=== PATIENT | female | born 1935 | race Caucasian/White ===

== ENCOUNTER 2019-06-24 20:40 | Inpatient (IN) | payer MEDICARE ==
[~2019-06-24] VITALS: Ht 160 cm; Wt 57.4 kg
--- NOTE | ~2019-06-24 | WRIGHTHP ---
[place], [place] PATIENT HISTORY AND PHYSICAL EXAM [id number] UNIT #: [id number] ROOM: 310 DOCTOR: RYANN GALARZA MD BIRTHDATE: [birth year] DOS: 06/25/2019 PSYCHIATRIC HISTORY AND PHYSICAL REASON FOR HOSPITALIZATION: Paranoia and auditory and visual hallucination. HISTORY OF PRESENT ILLNESS: The patient was seen, chart reviewed. An 83-year-old female who was presented to [facility] because of hallucinations and delusion. She was feeling like people out there to get her and attack her. She was also experiencing auditory and visual hallucination. The patient got cleared medically except for urinary tract infection and then sent to the psychiatric unit for further care and stabilization. The patient was pleasant and cooperative during the time of the interview. She reports doing well. She said that it happens last time also whenever she gets UTI, she experiences psychotic symptoms and that is what it happened. She said that she is not experiencing any psychotic symptoms now. She denied depressed mood, hopelessness, helplessness, denied any other neurovegetative signs and symptoms of depression. She denied symptoms of michael or hypomania. She said that she is currently on Effexor and Risperdal and those two medications have been helping her. ALLERGIES: PENICILLIN and CODEINE. PAST MEDICAL HISTORY: Essential hypertension, migraine, osteoarthritis. PAST PSYCHIATRIC HISTORY: The patient denied prior psychiatric hospitalization, denied prior suicide attempt, no suicide in the family. Denied having any gun at home. SUBSTANCE ABUSE HISTORY: The patient has a history of alcohol abuse in the past. SOCIAL HISTORY: She was born and raised in [facility] and 11th grade education. She was twice, , now has 4 kids. She lives by herself. She denied any history of physical or sexual abuse. MENTAL STATUS EXAMINATION: The patient was pleasant and cooperative. She was alert and oriented to month, year and place. She described her mood as "okay." Affect was euthymic. Thought process goal directed. No flight of ideas, loosening of association. She denied auditory or visual hallucination. No delusion or paranoia noted. She denied suicidal ideation, intent or plan. She also denied any homicidal ideation, intent or plan. ASSESSMENT: Brief psychotic disorder. PLAN: 1. I will continue her Effexor XR 150 mg in the morning. [place], [place] PATIENT HISTORY AND PHYSICAL EXAM NAME: ANDREIA LASSITER UNIT #: [id number] ROOM: 310 DOCTOR: RYANN GALARZA MD BIRTHDATE: [birth year] 2. I will continue Risperdal 0.5 mg at night. 3. Need to get collateral information. 4. Continue 1:1 therapy, psychoeducation, and coping skill. 5. Encourage activity in groups. RYANN GALARZA MD CM:HISPHYS:PATIENT HISTORY AND PHYSICAL EXAMINATION [id number] RYANN GALARZA MD 06/25/19 1900 interface
--- NOTE | ~2019-06-24 | PR ---
[place], [place] PROGRESS NOTE NAME: [id number] UNIT #: [id number] ROOM: 310 DOCTOR: RYANN GALARZA MD BIRTHDATE: [birth year] DOS: 06/26/2019 PSYCHIATRIC PROGRESS NOTE SUBJECTIVE: The patient is seen and spoke with the nursing staff. Per staff, the patient slept almost 6 hours. She is compliant with her medication, isolated, refused breakfast in the morning. She was paranoid last night, thought someone is going to kill her at home. The patient was pleasant and cooperative. She was in her room. She reports doing well. She acknowledges that she was "a little paranoid" last night and was feeling nervous, but said that she is doing well now. She reports good sleep and appetite. When I asked her about not eating the breakfast, she said that "I'm not hungry." MENTAL STATUS EXAMINATION: Pleasant and cooperative. Described her mood as "I'm fine." Affect was euthymic. Thought process goal directed. No flight of ideas, loosening of association. She denied auditory or visual hallucination now, no overt delusion or paranoia noted. She denied suicidal ideation, intent or plan. She also denied homicidal ideation, intent or plan. PLAN: 1. Continue current medication. 2. Continue redirection. 3. Encourage activity and groups. RYANN GALARZA MD CM:PNTRANS 38 [phone] RYANN GALARZA MD 06/27/192346 interface
--- NOTE | ~2019-06-24 | PR ---
[place], [place] PROGRESS NOTE NAME: ANDREIA LASSITER UNIT #: [id number] ROOM: 310 DOCTOR: ROBERT WESTON MD BIRTHDATE: [birth year] DOS: 07/05/2019 INTERVAL NOTE CHIEF COMPLAINT: "Yeah, I had been hearing voices for a long time now. I need some help." SUMMARY OF THE VISIT: The patient was interviewed as she was resting in bed. She endorsed positive auditory hallucinations and stated that they have been going on for some time now and that they are rather bothersome. She also reported that she needed help getting out of bed, so she can get the breakfast. I do think her sense of needing assistance is greater than she totally verbalizes and it comes out in other ways as she continues to make complaints about hearing voices and a plethora of other somatic issues. Outwardly, she is tolerating the current medication regimen well and I see no sedation, somnolence, extrapyramidal symptoms or tardive dyskinesia. MENTAL STATUS: She is alert and oriented. Mood does seem to be still somewhat depressed and preoccupied. She is anxious and fretful and openly states that she does have issues with her anxiety. She positively endorses psychotic symptoms as well. PLAN: I will discontinue the Risperdal and utilize Invega instead starting at 3 mg in the morning to decrease some of her psychotic symptomatology. We will engage in individual and solis milieu activity, returning to the least restrictive environment when psychiatrically stable. ROBERT WESTON MD CM:PNTRANS [id number] ROBERT WESTON MD 07/05/19 1113 interface
--- NOTE | ~2019-06-24 | PR ---
[place], [place] PROGRESS NOTE NAME: ANDREIA LASSITER UNIT #: [id number] ROOM: 317 DOCTOR: ROBERT WESTON MD BIRTHDATE: [birth year] DOS: 07/10/2019 CHIEF COMPLAINT: "That little white pill at night is making me too tired, can you stop that please." SUMMARY OF THE VISIT: The patient was interviewed in the dining area where she was engaging in conversation with peers. She stopped and engaged in conversation with me. For the most part, she was fairly bright and pleasant. She did ask when she might be able to leave. She notes that the Invega at nighttime is making her sleepy and is willing to have me discontinue it and try something different. Overall, she does seem to be improving. MENTAL STATUS: She is alert and oriented with time gaps. Mood does seem to be more euthymic. Affect is more appropriate. There is no michael, hypomania or gross psychosis noted at this time. PLAN: I will discontinue the Invega in lieu of Risperdal 0.5 mg at bedtime, continue to engage in individual and solis milieu activity, returning to the least restrictive environment when psychiatrically stable. ROBERT WESTON MD CM:PNTRANS 0 35 ROBERT WESTON MD 07/10/192035 interface
--- NOTE | ~2019-06-24 | CON ---
[place], [place] REPORT OF CONSULTATION NAME: ANDREIA LASSITRE UNIT #: [id number] ROOM: 317 DOCTOR: PHD CALVIN JOE BIRTHDATE: [birth year] DOS: 07/06/2019 HISTORY OF PRESENT ILLNESS: The patient is an 83-year-old female referred by Dr. Castellano with concerns for dementia. At the present time, the patient is on the [facility]. The patient had been experiencing delusions that someone was out to get her and experiencing auditory hallucinations. She lives at home and is a . She has 4 children. She worked in the past in health. She reports a history of alcohol abuse and that she has been sober since 1990. She is also a former cigarette smoker. She denied illegal drug use. She had UTI upon admission. PAST MEDICAL HISTORY: Anxiety, depression, alcohol abuse, essential hypertension, migraines, osteoarthritis. MEDICATIONS: Invega, [place], Exelon, Voltaren, Geodon, Tenormin, Micro-K, Effexor XR, Maalox, milk of magnesia, Tylenol, Ativan, Rozerem. The patient was lying comfortably in bed, in no apparent distress. She was awake, alert and oriented to person, place and generally to time. Mood was euthymic and affect was appropriately right ranging. She denied suicidal and homicidal ideation, plan, and intent. Speech was somewhat halting. Expressive language was noteworthy for word finding problems and a few paraphasic errors. Receptive language appeared within normal limits conversationally. The patient did become confused at times following instructions. She denied hallucinations today stating that her most recent ones occurred yesterday. There was no evidence of delusions. The patient earned a 10/30 on the [place] Cognitive Assessment with an intact score being 26. Mini trials B and Necker cube copy were impaired. The patient's clock drawing was noteworthy for incorrect hand placement. Attention was impaired with the patient being able to perform a minimum of 5 digits forward, but not 3 digits backwards. She made a few errors of commission on a test of vigilance and could not perform any correct serial 7 subtractions. With respect to language abilities, the patient made many errors on a test of repetition and could only produce 7 words in 1 minute on a test of verbal fluency. She was also not able to name any of the 3 animals shown to her. She referred to a camel as a cannibal. Verbal abstraction was noteworthy for confusion and concreteness. On a test of memory, the patient was able to recall 4/5 words on both immediate recall trials. After a brief delay, she was able to recall 2/5 words. Category cues helped the patient recall an additional word and multiple choice helped the patient recall the last 2 words. Overall, the patient demonstrated significant cognitive deficits in the areas of executive functioning, attention, memory and language. Contributing factors may include her history of hypertension. DIAGNOSES: Unspecified neurocognitive disorder, brief psychotic disorder. RECOMMENDATIONS: Given the patient's cognitive deficits, she would need increased supervision and assistance managing her medications and activities of daily living. Thank you very much for this consult. [place], [place] REPORT OF CONSULTATION NAME: ANDREIA LASSITER UNIT #: [id number] ROOM: [facility] DOCTOR: CALVIN PHD JOE BIRTHDATE: [birth year] Jessa East PhD CM:CONSTR:REPORT OF CONSULTATION 1351 07/06/19 1944 interface
--- NOTE | ~2019-06-24 | PR ---
[place], [place] PROGRESS NOTE NAME: [id number] UNIT #: [id number] ROOM: 310 DOCTOR: RYANN GALARZA MD BIRTHDATE: [birth year] DOS: 06/27/2019 SUBJECTIVE: The patient was seen and spoke with the staff. Per staff, the patient slept 7 hours. No behavior problems or issues. No paranoia. She complains of shakiness. The patient was pleasant and cooperative. She was in her room. "She reports being anxious without any reason." She denied any paranoia. She is taking her medication. Denied any side effects. She reports good sleep and appetite. MENTAL STATUS EXAMINATION: The patient was pleasant, cooperative, described her mood as "okay." Affect was euthymic. She denied auditory or visual hallucination. No overt delusion or paranoia noted. She denied suicidal ideation, intent or plan. She also denied any homicidal ideation, intent or plan. PLAN: 1. I will start her on BuSpar 5 mg twice a day for anxiety. 2. Continue other medication. 3. Continue redirection and supportive care. 4. Encourage activity and groups. RYANN GALARZA MD CM:PNTRANS [id number] RYANN GALARZA MD 06/28/19 0000 interface
--- NOTE | ~2019-06-24 | PR ---
[place], [place] PROGRESS NOTE NAME: ANDREIA LASSITER UNIT #: [id number] ROOM: 317 DOCTOR: ROBERT WESTON MD BIRTHDATE: [birth year] DOS: 07/11/2019 INTERVAL NOTE CHIEF COMPLAINT: "Oh, I slept better, thank you so much. "I think I am doing well." SUMMARY OF THE VISIT: The patient was interviewed as she was sitting with a female peer eating breakfast. She stopped and engaged in conversation with me. She was bright, pleasant and engaging. She did not have any of the fragmented thinking, hallucinations, delusions that she had previously. Overall, she seems to be gradually improving. She voices a willingness and a readiness to return home soon. MENTAL STATUS: She is alert and oriented with some time gaps. Mood does seem to be strongly trending towards euthymia. Affect is much more appropriate. There is no michael or hypomania. There is no gross psychotic symptoms. Short term memory has some mild gaps, otherwise she is intact. PLAN: I will go ahead and maximize out the dose of Namenda, bringing it to 10 mg b.i.d. Continue the current dose of the Exelon patch and the Risperdal. Continue to engage in individual and solis milieu activity, returning to the least restrictive environment when psychiatrically stable. ROBERT WESTON MD CM:PNTRANS 26 ROBERT WESTON MD 07/11/192225 interface
--- NOTE | ~2019-06-24 | PR ---
[place], [place] PROGRESS NOTE NAME: ANDREIA LASSITER UNIT #: [id number] ROOM: 310 DOCTOR: ROBERT WESTON MD BIRTHDATE: [birth year] DOS: 07/06/2019 INTERVAL NOTE CHIEF COMPLAINT: "Oh, I slept well last night. I am feeling okay, thank you for asking." SUMMARY OF THE VISIT: The patient was interviewed as she was sitting in the dining area. She engaged readily in conversation, reporting no complaints. Nurses, however, note that in late afternoon early evening, she begins to get much more fretful and anxious and even to the point of being somewhat irritable. Her paranoia also increases during this period of time. MENTAL STATUS: She is alert and oriented to person, place and time. Mood does seem to be fairly euthymic this morning. I do not see the presence of hypomania, michael or psychosis at this time. Memory for the most part has only mild gaps, but is intact otherwise. PLAN: I will go ahead and add Rozerem 8 mg at bedtime to improve sleep. We will monitor for timing of her sundowning symptoms and have Dr. Jessa East, psychologist to evaluate for the presence of dementia. We will engage in individual and solis milieu activity, returning to the least restrictive environment when psychiatrically stable. ROBERT WESTON MD CM:PNTRANS [id number] ROBERT WESTON MD 07/06/19 1012 interface
--- NOTE | ~2019-06-24 | PR ---
[place], [place] PROGRESS NOTE NAME: ANDREIA LASSITER UNIT #: [id number] ROOM: 310 DOCTOR: LILIA LOWE DO BIRTHDATE: [birth year] DOS: 07/02/2019 PSYCHIATRIC PROGRESS NOTE CHIEF COMPLAINT: "Hi, good morning." SUMMARY VISIT: The patient is interviewed while lying in bed in her room. She states that she slept well last night. She was able to eat breakfast; however, she said it contained mostly Peoples. She admits that she had been shaking a lot but states that it is her nerves that makes her shake and help her relax and help with the shaking, she rests in bed. Per nursing staff, the patient slept about 6 hours last night. She has been calm and appropriate with staff members. MENTAL STATUS EXAMINATION: She is alert and oriented x 3. Mood is trending towards more euthymia. Affect is much more appropriate. There is no michael, hypomania or gross psychosis. Short-term memory has some gaps. PLAN: Continue current medication regimen. We will continue to support and engage in individual and solis milieu activity, returning to the least restrictive environment when psychiatrically stable. Lilia Lowe DO ROBERT WESTON MD CM:PNTRANS [id number] LILIA LOWE DO 07/02/19 1336 interface
--- NOTE | ~2019-06-24 | PR ---
[place], [place] PROGRESS NOTE NAME: ANDREIA LASSITER UNIT #: [id number] ROOM: 310 DOCTOR: WISAM RODRIGUEZ CNP BIRTHDATE: [birth year] DOS: 07/03/2019 CHIEF COMPLAINT: "I have bad nerves." SUMMARY OF THE VISIT: The patient was interviewed as she sat in the dining room, eating her breakfast. The patient engaged readily in conversation with me. The patient reports that she slept off and on last night and that she feels very anxious. She reported to staff that she randomly feels woozy. Yesterday she is reporting to staff that she heard voices coming from an electrical cord. Staff reports that the patient's appetite has been good. Her sleep was sporadic last night. She has been compliant with taking medications. MENTAL STATUS EXAMINATION: The patient is alert and oriented to person, place and time. She was pleasant and cooperative with me. No michael or hypomania noted. No delusions or paranoia noted. No auditory or visual hallucinations noted. The patient's mood was calm. Her affect was congruent with mood. PLAN: I am going to increase the patient's Risperdal to 0.5 mg in the morning to help combat the auditory hallucinations that the patient had been experiencing as well as to help with some of her anxiety, agitation symptoms. We will monitor the patient for effectiveness of medications. Monitor for side effects as well. Continue to encourage the patient to engage in individual and solis milieu activity. Continue fall and safety precautions. Plan is to return the patient to the least restrictive environment when she is considered psychiatrically stable. Wisam Rodriguez CNP CM:PNTRANS 4 1 WISAM RODRIGUEZ CNP 07/03/19921 interface
--- NOTE | ~2019-06-24 | DS ---
[place], [place] DISCHARGE SUMMARY [id number] UN[facility] #: [id number] ROOM: 317 DOCTOR: ROBERT WESTON MD BIRTHDATE: [birth year] DOS: 07/13/2019 DISCHARGE SUMMARY CHIEF COMPLAINT: "Oh, people are trying to get me. I just know they are trying to hurt me." HISTORY OF PRESENT ILLNESS: This is an 83-year-old white female who presented to [facility] because of increased hallucinations and delusions. The patient was grossly paranoid and believed that people are out there trying to get her and attack her. She is also experiencing significant auditory and visual hallucinations and responding to these hallucinations as if they are real. The patient has decompensated to the point where she is not meeting her basic needs and was ultimately then sent to the [facility] to further rule out organic factors and to stabilize on medication. Of note, the patient did have a UTI upon admission. SUMMARY OF HOSPITAL COURSE: The patient was admitted to the unit where her Effexor XR 150 mg a day and Risperdal 0.5 mg were continued. The patient was found to have significant cognitive issues at first and she was then started on Exelon patch 4.6 mg a day and Namenda 5 mg a day. The Risperdal was increased to 0.5 mg twice daily briefly in an effort to break the psychosis. Over the course of her time her time here on the unit, her Exelon patch dose was increased to its maximum dose of 13.3 mg a day and Namenda was also maxed out to 10 mg twice daily as she began to improve and become much more goal oriented in her thinking and the delusions, paranoia, and psychosis dissipated, it was felt that we could safely lower the Risperdal back to 0.5 mg at bedtime. After this was done, we observed her closely for reoccurrence of the symptoms and they did not reoccur. She voiced a willingness and a readiness to return home and was ultimately discharged home on 07/13/2019. MENTAL STATUS AT DISCHARGE: The patient is alert and oriented to person, place and fairly approximate to time. Mood does seem to be euthymic. Affect is appropriate. There is no michael, hypomania, or psychosis. Short-term memory has mild gaps, otherwise she is intact. FINAL DIAGNOSES: Brief psychotic disorder, Alzheimer's dementia. PLAN: All of her prescriptions have been e-scribed to [facility] in [place]. At the time of discharge, she was medically and psychiatrically stable. [place], [place] DISCHARGE SUMMARY NAME: ANDREIA LASSITER UNIT #: [id number] ROOM: 317 DOCTOR: ROBERT WESTON MD BIRTHDATE: [birth year] ROBERT WESTON MD CM:DISCHARG 6 0 ROBERT WESTON MD 07/13/19950 interface
--- NOTE | ~2019-06-24 | PR ---
[place], [place] PROGRESS NOTE NAME: ANDREIA LASSITER UNIT #: [id number] ROOM: 310 DOCTOR: ROBERT WESTON MD BIRTHDATE: [birth year] DOS: 06/28/2019 INTERVAL NOTE CHIEF COMPLAINT: "I need help getting to the bathroom." SUMMARY OF THE VISIT: The patient was interviewed as she was resting in bed. She was rather disjointed and fragmented in her thinking and looked rather perplexed and bewildered. She did ask me for help getting to the restroom and I told her I would bring in a nurse's aide, which I did. MENTAL STATUS EXAMINATION: She is alert and oriented to person, place, but not to time. Mood does seem to be rather anxious and perplexed. She is bewildered. There is no michael or hypomania. There is no voice psychosis; however, nurses report that she is experiencing paranoia. She does have gaps in her short term memory. PLAN: I will discontinue her BuSpar to simplify her regimen and instead increase her Risperdal from 0.5 mg at bedtime to 0.25 in the morning and 0.5 at night, adding Exelon patch 4.6 mg a day. We will monitor and support. ROBERT WESTON MD CM:PNTRANS 30 ROBERT WESTON MD 06/28/192231 interface
--- NOTE | ~2019-06-24 | PR ---
[place], [place] PROGRESS NOTE NAME: ANDREIA LASSITER UNIT #: [id number] ROOM: 310 DOCTOR: ROBERT WESTON MD BIRTHDATE: [birth year] DOS: 07/01/2019 CHIEF COMPLAINT: "Oh, I feel pretty good, thank you for asking." SUMMARY OF THE VISIT: The patient was interviewed as she was resting in bed. She reports she had already been up and was feeling well. She was less fixated on her sore back and in general responded to my questions appropriately. Nurses report that there is a similar improvement noted, but she still has periods of confusion and disorientation more so in the later afternoon and early evening. MENTAL STATUS: She is alert and oriented with some time gaps. Mood does seem to be strongly trending towards euthymia. Affect is much more appropriate. There is no michael, hypomania, or gross psychosis noted. Short-term memory has some gaps, and she does process at times slowly. PLAN: I will maintain her current psychotropic regimen, continue to engage in individual and solis milieu activity, return to the least restrictive environment when psychiatrically stable. ROBERT WESTON MD CM:PNTRANS [phone] ROBERT WESTON MD 07/01/19 0953 interface
--- NOTE | ~2019-06-24 | PR ---
[place], [place] PROGRESS NOTE NAME: ANDREIA LASSITER UNIT #: [id number] ROOM: 317 DOCTOR: ROBERT WESTON MD BIRTHDATE: [birth year] DOS: 07/08/2019 INTERVAL NOTE CHIEF COMPLAINT: "Oh, thank you for stopping. I am feeling well, thank you." SUMMARY OF THE VISIT: The patient was interviewed in her room where she was resting quietly in bed. She engaged readily in conversation as always and is very bright and pleasant in the morning. Nurses report, however, in the afternoon and evening, she becomes much more fretful, anxious, and even paranoid and her cognitive gaps become much more prominent. MENTAL STATUS: She is alert and oriented to person, place, very approximate to time, but not exact. She gives approximate answers and confabulates. There is no depression or anxiety. There is no hypomania, michael or psychosis. Short term memory has gaps. PLAN: I will go ahead and increase her Namenda from 5 mg a day to 5 mg twice a day as it augments the effectiveness of the Exelon. We will engage in individual and solis milieu activity, returning to the least restrictive environment when psychiatrically stable. ROBERT WESTON MD CM:PNTRANS 1018 ROBERT WESTON MD 07/08/19 1018 interface
--- NOTE | ~2019-06-24 | PR ---
[place], [place] PROGRESS NOTE NAME: ANDREIA LASSITER UNIT #: [id number] ROOM: 310 DOCTOR: LILIA LOWE DO BIRTHDATE: [birth year] DOS: 06/29/2019 CHIEF COMPLAINT: "Hi, how are you, been better, a little woozy right now." SUMMARY OF VISIT: The patient is interviewed while sitting in the dining baker eating breakfast. She states that she was put in the hospital due to UTI and that she got confused from that. She is polite and calm during the interview. Per nursing, the patient slept about 5 hours last night. They did report that yesterday her paranoia was improving. She still had some hallucinations, but tries to hide them from the staff. MENTAL STATUS EXAMINATION: She is alert and oriented to person and place, not necessarily to time. Mood does appear more euthymic. There was no michael or hypomania. There was no psychosis. There were no hallucinations noted during this interview. Some short-term memory gaps are present. PLAN: We will recheck the UA. We will continue to monitor and support and engage in individual and solis milieu activity, returning to least restrictive environment when psychiatrically stable. Lilia Lowe DO ROBERT WESTON MD CM:PNTRANS [id number] LILIA LOWE DO 06/29/19 1454 interface
--- NOTE | ~2019-06-24 | PR ---
[place], [place] PROGRESS NOTE NAME: ANDREIA LASSITER UNIT #: [id number] ROOM: 310 DOCTOR: LILIA LOWE DO BIRTHDATE: [birth year] DOS: 06/30/2019 CHIEF COMPLAINT: "Good morning, I am miserable with my back and legs." SUMMARY OF VISIT: The patient was interviewed while lying in bed in her room. She states that she had a hard time sleeping last night due to her back and legs hurting. The patient mentioned that she entered them a long time ago when she fell in her driveway when it was icy out and so she chronically has been dealing with this pain. She currently rates her pain as 8/10. She states she is still able to move and walk, but she does it with constant pain. Per nursing, the patient slept poorly overnight. They reported that she was having hallucinations and the patient is aware that she is having them and does not like how they make her feel and due to this, she is unsure when she can return home. MENTAL STATUS EXAMINATION: She is alert and oriented to person, place, not necessarily time. Mood is more euthymic. There is no michael or hypomania. No psychosis. There are no hallucinations during this interview; however, nursing staff reports auditory, visual and olfactory hallucinations during the day. There are some short-term memory gaps. PLAN: Start Zostrix-HP cream t.i.d. and increase Exelon patch to 9.5 mg daily. We will continue to monitor and support, engage in individual and solis milieu activity, returning to least restrictive environment when psychiatrically stable. Lilia Lowe, DO ROBERT WESTON MD CM:VIVI 1 [id number] LILIA LOWE DO 07/01/19 0055 interface
--- NOTE | ~2019-06-24 | PR ---
[place], [place] PROGRESS NOTE NAME: ANDREIA LASSITER UNIT #: [id number] ROOM: 317 DOCTOR: ROBERT WESTON MD BIRTHDATE: [birth year] DOS: 07/12/2019 CHIEF COMPLAINT: "Oh, I hope I get to go soon, I am feeling much better." SUMMARY OF THE VISIT: The patient was interviewed as she was sitting with a group of peers. She was engaging readily in conversation. She stopped and engaged in conversation with me, voicing no complaints. She reports she slept well, ate well and is feeling much better. MENTAL STATUS: She is alert and oriented with some mild time gaps. Overall, there is a significant trend towards euthymia and her behaviors have been much more consistent. There have been no acting out, no major issues. MENTAL STATUS: She is alert and oriented with time gaps. Mood does seem to be improving. Affect more appropriate. No hypomania, michael or psychosis. Short-term memory has mild gaps, otherwise she is intact. PLAN: I will maintain her current psychotropic regimen, engage in individual and solis milieu activity, returning to the least restrictive environment when psychiatrically stable. ROBERT WESTON MD CM:PNTRANS [id number] ROBERT WESTON MD 07/12/19 1025 interface
[2019-06-24 21:30] VITALS: BP 119/71
[2019-06-24] MEDS ORDERED: POTASSIUM CHLO10 MEQ PO (22:00)
[2019-06-24] MEDS ORDERED: EFFEXOR XR150 MG PO (22:01)
[2019-06-24] MEDS ORDERED: RISPERDAL0.5 MG PO (22:04)
[2019-06-24] MEDS ORDERED: TENORMIN50 MG PO (22:05)
[2019-06-24] MEDS ORDERED: CHLORTHALIDONE25 MG PO (22:06)
[2019-06-24 23:15] LABS: BILIRUBIN NEGATIVE (NEGATIVE); BLOOD NEGATIVE (NEGATIVE); CLARITY CLOUDY (CLEAR); COLOR YELLOW (YELLOW); GLUCOSE NEGATIVE (NEGATIVE); KETONE TRACE (NEGATIVE); LEUKO ESTERASE 3+ (NEGATIVE); NITRITE POSITIVE (NEGATIVE); SPECIFIC GRAVITY 1.015 (1.005-1.030)
[2019-06-24 23:22] LABS: BACTERIA 4+
[2019-06-24 23:23] LABS: WBC 51-100 wbc/hpf (0-5)
[2019-06-25 07:05] VITALS: BP 109/72
[2019-06-25 07:34] LABS: BASO % 0.1 % (0.0-1.0); EOS % 0.1 % (1.0-4.0); HEMATOCRIT 41.4 % (37.0-47.0); HEMOGLOBIN 13.2 g/dl (12.0-16.0); LYMPH # 2.2 10*3/uL (1.3-4.4); LYMPH % 28.2 % (27.0-41.0); MEAN CORPUSCULAR HGB 29.3 pg (27.0-31.0); MEAN CORPUSCULAR HGB CONC 31.9 g/dl (33.0-37.0); MEAN PLATELET VOLUME 10.9 fl (9.6-12.3); MONO # 0.6 10*3/uL (0.1-1.0); MONO % 7.9 % (3.0-9.0); NEUT # 4.9 10*3/uL (2.3-7.9); NEUT % 63.6 % (47.0-73.0); PLATELET COUNT AUTOMATED 385 10*3/uL (130-400); WHITE BLOOD COUNT 7.7 10*3/uL (4.8-10.8)
[2019-06-25 07:41] VITALS: BP 109/72
[2019-06-25 07:41] LABS: ALBUMIN 3.8 gm/dl (3.1-4.5); ALKALINE PHOSPHATASE 75 U/L (45-117); BUN 19 mg/dl (7-24); CHLORIDE 103 mmol/L (98-107); CHOLESTEROL 210 mg/dL (<200); CREATININE 0.96 mg/dL (0.55-1.02); HDL CHOLESTEROL 71 mg/dl (40-60); LDL CHOLESTEROL 118 mg/dL (9-159); POTASSIUM 3.7 mmol/L (3.5-5.1); SGOT/AST 19 IU/L (3-35); SGPT/ALT 17 U/L (12-78); SODIUM 138 mmol/L (136-145); TOTAL PROTEIN 7.4 gm/dL (6.4-8.2); TRIGLYCERIDES 103 mg/dl (<150); VLDL CHOLESTEROL 21 mg/dL (6-40)
[2019-06-25 17:00] LABS: VITAMIN D, 25-HYDROXY 39.2 ng/mL (30-100)
[2019-06-25 20:00] VITALS: BP 113/67
[2019-06-26 08:09] VITALS: BP 103/66
[2019-06-26 19:53] VITALS: BP 111/69
[2019-06-27 07:48] VITALS: BP 127/68
[2019-06-27 20:00] VITALS: BP 137/66
[2019-06-28 08:56] VITALS: BP 130/68
[2019-06-28 20:00] VITALS: BP 142/64
[2019-06-29 07:55] VITALS: BP 132/68
[2019-06-29 14:52] LABS: BILIRUBIN NEGATIVE (NEGATIVE); BLOOD NEGATIVE (NEGATIVE); CLARITY CLEAR (CLEAR); COLOR YELLOW (YELLOW); GLUCOSE NEGATIVE (NEGATIVE); KETONE NEGATIVE (NEGATIVE); LEUKO ESTERASE 3+ (NEGATIVE); NITRITE NEGATIVE (NEGATIVE); SPECIFIC GRAVITY 1.015 (1.005-1.030)
[2019-06-29 15:29] LABS: BACTERIA 3+; EPITHELIAL CELLS 21-30; WBC 31-40 wbc/hpf (0-5)
[2019-06-29 19:24] VITALS: BP 126/78
[2019-06-30 08:26] VITALS: BP 97/49
[2019-06-30 09:11] VITALS: BP 130/72
[2019-06-30 19:50] VITALS: BP 116/75
[2019-07-01 06:52] LABS: EOS % 0.2 % (1.0-4.0); HEMATOCRIT 40.1 % (37.0-47.0); HEMOGLOBIN 12.9 g/dl (12.0-16.0); LYMPH % 32.5 % (27.0-41.0); MEAN CELL VOLUME 90.7 fl (81.0-99.0); MEAN CORPUSCULAR HGB 29.2 pg (27.0-31.0); MEAN CORPUSCULAR HGB CONC 32.2 g/dl (33.0-37.0); MEAN PLATELET VOLUME 10.2 fl (9.6-12.3); MONO # 0.7 10*3/uL (0.1-1.0); MONO % 10.7 % (3.0-9.0); NEUT # 3.4 10*3/uL (2.3-7.9); NEUT % 56.4 % (47.0-73.0); PLATELET COUNT AUTOMATED 349 10*3/uL (130-400); RED BLOOD COUNT 4.42 10*6/uL (4.10-5.10); RED CELL DISTRI WIDTH 14.4 % (0-14.5); WHITE BLOOD COUNT 6.1 10*3/uL (4.8-10.8)
[2019-07-01 07:20] LABS: BUN 17 mg/dl (7-24); CHLORIDE 104 mmol/L (98-107); CREATININE 0.92 mg/dL (0.55-1.02); POTASSIUM 3.3 mmol/L (3.5-5.1); SODIUM 139 mmol/L (136-145)
[2019-07-01 08:01] VITALS: BP 102/82
[2019-07-01 20:22] VITALS: BP 128/76
[2019-07-02 07:42] VITALS: BP 147/65
[2019-07-02 20:15] VITALS: BP 111/76
[2019-07-03 07:34] VITALS: BP 137/67
[2019-07-03 20:00] VITALS: BP 140/69
[2019-07-04 07:03] VITALS: BP 112/64
[2019-07-04 19:57] VITALS: BP 120/60
[2019-07-05 08:03] VITALS: BP 123/85
[2019-07-05 20:00] VITALS: BP 120/72
[2019-07-06 07:35] VITALS: BP 114/54
[2019-07-06 20:00] VITALS: BP 124/64
[2019-07-07 07:33] VITALS: BP 130/57
[2019-07-07 19:56] VITALS: BP 104/68
[2019-07-08 07:53] VITALS: BP 121/71
[2019-07-08 19:48] VITALS: BP 115/65
[2019-07-09 07:39] VITALS: BP 121/68
[2019-07-09 19:38] VITALS: BP 100/68
[2019-07-10 07:58] VITALS: BP 114/58
[2019-07-10 20:00] VITALS: BP 109/65
[2019-07-11 07:56] VITALS: BP 87/53
[2019-07-11 08:17] VITALS: BP 108/70
[2019-07-11 20:00] VITALS: BP 116/72
[2019-07-12 08:24] VITALS: BP 110/59
[2019-07-12 19:18] VITALS: BP 115/68
[2019-07-13 07:44] VITALS: BP 128/54
[2019-07-13] MEDS ORDERED: ROZEREM8 MG PO (09:22)
[2019-07-13] MEDS ORDERED: EXELON13.3 MG/21 T (09:22)
[2019-07-13] MEDS ORDERED: RISPERIDONE0.5 MG PO (09:22)
[2019-07-13] MEDS ORDERED: MEMANTINE HCL10 MG PO (09:22)
[2019-07-13] MEDS ORDERED: VENLAFAXINE HYD75 M3 PO (09:22)
== END 2019-07-13 12:56 | disposition home or self-care (01) | DRG 57 ==
LOC: 3N 20:40
PROVIDERS: Psychiatry & Neurology Psychiatry; Registered Nurse; ADMIT Psychiatry & Neurology Psychiatry
DX: G30.9 Alzheimer's disease, unspecified (principal); F23 Brief psychotic disorder; N30.01 Acute cystitis with hematuria; F33.1 Major depressive disorder, recurrent, moderate; F41.9 Anxiety disorder, unspecified; G43.909 Migraine, unspecified, not intractable, without status migrainosus; R41.9 Unspecified symptoms and signs involving cognitive functions and awareness; F02.80 Dementia in other diseases classified elsewhere, unspecified severity, without behavioral disturbance, psychotic disturbance, mood disturbance, and anxiety; I10 Essential (primary) hypertension; M47.817 Spondylosis without myelopathy or radiculopathy, lumbosacral region; Z88.0 Allergy status to penicillin; Z88.5 Allergy status to narcotic agent; Z90.710 Acquired absence of both cervix and uterus; Z90.79 Acquired absence of other genital organ(s); Z90.722 Acquired absence of ovaries, bilateral; Z87.891 Personal history of nicotine dependence; Z83.6 Family history of other diseases of the respiratory system; Z79.899 Other long term (current) drug therapy